=== PATIENT | female | born 1955 | race Caucasian/White ===

== ENCOUNTER 2021-05-13 05:27 | Day surgery (SDC) | payer MEDICARE, OTHER ==
[~2021-05-13] VITALS: Ht 158 cm; Wt 50.0 kg
[~2021-05-13 05:27] MED LIST: BACTRIM DS TAB1 EACH PO; CELEBREX **OUT100 MG PO; CIPRO500 M1 PO; COLACE100 MG PO; CYCLOBENZAPRINE5 MG PO; DITROPAN5 MG PO; FLEXERIL5 MG PO; GABAPENTIN600 MG PO; HYDROCODON-ACE1 EAC2 PO; HYDROCODON-ACE1 EAC6 PO; LIPITOR40 MG PO; NEURONTIN300 MG PO; NORCO 5-325 TA1 EACH PO; NORCO 7.5-3251 EACH PO; PAXIL40 MG PO; PROLIA60 MG/1 ML SC; VOLTARIN GEL TOP; ZANTAC150 MG PO; ZOFRAN8 MG PO
[2021-05-13] MEDS ORDERED: FEOSOL325 MG PO (13:07)
[2021-05-13] MEDS ORDERED: CHILDREN'S ASPI81 MG PO (13:07)
== END 2021-05-13 16:00 | disposition home or self-care (01) ==
LOC: FAS 05:27 → FMS 08:27 → FAS 16:00
PROVIDERS: Orthopaedic Surgery
DX: M12.811 Other specific arthropathies, not elsewhere classified, right shoulder (principal); E78.5 Hyperlipidemia, unspecified; K58.9 Irritable bowel syndrome, unspecified; F32.A Depression, unspecified; K21.9 Gastro-esophageal reflux disease without esophagitis; F17.210 Nicotine dependence, cigarettes, uncomplicated; Z79.899 Other long term (current) drug therapy
CPT/HCPCS: 73020; 86850; 86900; 86901; 94010; 94762; 97162; 97166; 97530-GP; 97535; C1713; C1776; J0171; J0697; J0735; J1100; J1170; J1885; J2250; J2270; J2370; J2405; J2704; J2795; J7120